=== PATIENT | female | born 1980 | race Caucasian/White ===

== ENCOUNTER 2017-06-28 11:29 | Emergency (ER) | payer MEDICAID, OTHER ==
[2017-06-28] MEDS ORDERED: predniSONE 20 MG TABLET PO ONE (12:34)
--- NOTE | 2017-06-28 12:36 | ERNOTE ---
ENT HPI Presenting Symptoms: other - sore throat Time Seen by Provider: 06/28/17 11:42 Source: patient, family Exam Limitations: no limitations - Immun/Allergies/Home Medications Allergies/Adverse Reactions: Allergies Allergy/AdvReac Type Severity Reaction Status Date / Time clarithromycin [From Biaxin] Allergy Mild rash Verified 06/28/17 11:39 Home Medications: HOME MEDICATIONS Citalopram Hydrobromide [Celexa] 20 mg PO DAILY 06/25/12 [Last Taken 11/21/14] Levothyroxine Sodium [Tirosint] 50 mcg PO DAILY 11/22/14 [Last Taken 11/21/14] metFORMIN HCL [Glucophage Xr] 500 mg PO DAILY 11/22/14 [Last Taken 11/21/14] Amox Tr/Potassium Clavulanate [Augmentin 875-125 Tablet] 875 mg PO Q12H #20 tab 06/28/17 [Last Taken Unknown] Prednisone 50 mg PO DAILY #3 tablet 06/28/17 [Last Taken Unknown] - History of Present Illness Narrative: Patient presents with a sore throat over the last day or so. Patient has had several bouts of both mono and strep throat in the past here for evaluation and treatment as we deem necessary. Severity: Present: moderate ENT Location: Present: throat Prearrival Treatment: Present: no prearrival treatment Modifying Factors - Improves: Reports: nothing Modifying Factors - Worsens: Reports: nothing Associated Symptoms - ENT: Reports: voice change Review of Systems - Review of Systems Constitutional: Present: See HPI EYE: Present: no symptoms reported ENT: Present: See HPI Respiratory: Present: no symptoms reported Cardiology: Present: no symptoms reported Gastrointestinal/Abdominal: Present: no symptoms reported Genitourinary: Present: no symptoms reported Musculoskeletal: Present: no symptoms reported Skin: Present: no symptoms reported Neurological: Present: no symptoms reported Endocrine: Present: no symptoms reported Hematologic/Lymphatic: Present: no symptoms reported Psych: Present: no symptoms reported - Patient's Past Medical History Patient History - Medical: No pertinent hx, Other - strep throat, mononucleosis Patient History - Cardiac/Respiratory: No pertinent hx Patient History - Cancer: No Hx of Cancer Patient History - Surgical Procedures: T & A Patient History - Other: None - Social History Living Situations: home Psych History: No pertinent hx Alcohol Use: none Drug Use: none Physical Exam - Physical Exam General Appearance: Present: wd/wn, alert, moderate distress Head Exam: Present: normal inspection, no evidence of injury Eye Exam: Normal inspection: bilateral, PERRL: bilateral Ears, Nose, Throat: Present: pharyngeal erythema Neck: Present: normal inspection, nontender Respiratory: Present: no respiratory distress, normal breath sounds, no accessory muscle use, chest nontender, lungs clear Cardiovascular/Chest: Present: regular rate, rhythm, no murmur, normal peripheral pulses Gastrointestinal/Abdominal: Present: normal bowel sounds, nontender, nondistended, soft, no organomegaly Rectal Exam: Present: deferred Back Exam: Present: normal inspection, normal range of motion Extremity Exam: Present: normal inspection, non-tender, no edema, normal range of motion Neurological Exam: Present: alert, oriented, normal mood/affect Skin Exam: Present: normal color, warm/dry Lymphatic Exam: Present: no adenopathy ED Progress - Results and Orders Patient's Lab Results:: I have reviewed the patient's lab results. - Vital Signs Patient's Vital Signs:: I have reviewed the patient's vital signs. Vital Signs: Vital Signs 06/28/17 11:34 Temperature 36.8 C Pulse Rate 83 Respiratory 12 Rate Blood Pressure 138/83 O2 Sat by Pulse 97 Oximetry - Progress/Reassessment Chief Complaint: Sore Throat Plan - Plan Plan: While the strep and mono are negative, patient still has her pharyngitis/ laryngitis and we will treat the patient with Augmentin. Departure Clinical Impression: Laryngitis Pharyngitis Qualifiers: Pharyngitis/tonsillitis etiology: other specified organisms Qualified Code(s): J02.8 - Acute pharyngitis due to other specified organisms - Departure Disposition: Home self-care Condition: Good Instructions: Laryngitis, [id number], Pharyngitis, [id number] Referrals: Angela Pack MD [Primary Care Provider] - Prescriptions: Amox Tr/Potassium Clavulanate [Augmentin 875-125 Tablet] 875 mg PO Q12H #20 tab Prednisone 50 mg PO DAILY #3 tablet
[2017-06-28] MEDS ORDERED: predniSONE 20 MG TABLET ONE (12:47)
[2017-06-28] MEDS ORDERED: AMOX TR/POTASSIUM CLAVULANATE 875 MG TABLET PO ONE (13:02)
[2017-06-28] MEDS ORDERED: AMOX TR/POTASSIUM CLAVULANATE 875 MG TABLET ONE (13:03)
[2017-06-28 13:09] VITALS: BP 128/84
== END 2017-06-28 13:07 | disposition home or self-care (01) ==
LOC: ER 11:29
DX: J04.0 Acute laryngitis (principal); J02.8 Acute pharyngitis due to other specified organisms